=== PATIENT | male | born 1945 | race Caucasian/White ===

== ENCOUNTER 2021-08-27 07:12 | Emergency (ER) | payer OTHER ==
[~2021-08-27] VITALS: Ht 177.8 cm; Wt 84.0 kg
[2021-08-27] MEDS ORDERED: oxyCODONE/APAP 5/325 1 TAB TABLET PO ONE (07:30)
[2021-08-27] MEDS ORDERED: ONDANSETRON ODT 4 MG TAB.RAPDIS PO ONE (07:30)
--- NOTE | 2021-08-27 07:35 | PHYS DOC ---
Adult General Chief Complaint Chief Complaint: MECHANICAL FALL HPI HPI Patient is a 76-year-old male presenting to the emergency department for evaluation of a trip and fall that occurred shortly prior to arrival. Patient says that he was stepping over a curb when his left foot went over the curb but then he tried picking his right foot up and it did not go all the way up and he kicked into it and fell straight forward and landed on his face and passed out for 1 minute. He has multiple scrapes and abrasions and says that his tetanus is up-to-date. He says his primary complaint is a headache but he also has some neck and mid back pain as well as right shoulder pain and left knee pain. He says that he does not take any blood thinners. He is in no acute distress with normal vital signs other than hypertension noted. Review of Systems Review of Systems Constitutional: Denies fever or chills [] Eyes: Denies change in visual acuity, redness, or eye pain [] HENT: Denies nasal congestion or sore throat [] Respiratory: Denies cough or shortness of breath [] Cardiovascular: No additional information not addressed in HPI [] GI: Denies abdominal pain, nausea, vomiting, bloody stools or diarrhea [] : Denies dysuria or hematuria [] Musculoskeletal: + back pain, joint pain [] Integument: + abrasions Neurologic: + headache. No focal weakness or sensory changes [] All other systems were reviewed and found to be within normal limits, except as documented in this note. Current Medications Current Medications Current Medications Medications (Trade) Dose Ordered Sig/[facility] Start Time Stop Time Status Last Admin Dose Admin Ondansetron HCl (Zofran Odt) 4 mg 1X ONCE 08/27/21 07:30 08/27/21 07:31 Oxycodone/ Acetaminophen (Percocet 5/325) 2 tab 1X ONCE 08/27/21 07:30 08/27/21 07:31 Allergies Allergies Allergies Coded Allergies Type Severity Reaction Last Updated Verified No Known Drug Allergies 08/27/21 No Physical Exam Physical Exam Constitutional: Well developed, well nourished, no acute distress, non-toxic appearance. [] HENT: Normocephalic, atraumatic, bilateral external ears normal, oropharynx moist, no oral exudates, nose normal. [] Eyes: PERRLA, EOMI, conjunctiva normal, no discharge. [] Neck: Normal range of motion, no tenderness, supple, no stridor. [] Cardiovascular:Heart rate regular rhythm, no murmur [] Lungs & Thorax: Bilateral breath sounds clear to auscultation [] Abdomen: Bowel sounds normal, soft, no tenderness, no masses, no pulsatile masses. [] Skin: Multiple scrapes and abrasions on the left face left arm and right hand Back: Midline cervical and thoracic tenderness to palpation however no lumbar midline tenderness to palpation. Extremities: Pain to palpation in the right scapular and right shoulder region but intact active and passive range of motion. Left knee tender to palpation with no obvious swelling but there is a knee brace in place. Neurologic: Alert and oriented X 3, normal motor function, normal sensory function, no focal deficits noted. [] EKG EKG [] Radiology/Procedures Radiology/Procedures [] Heart Score C/O Chest Pain: No Risk Factors: Risk Factors: DM, Current or recent (<one month) smoker, HTN, HLP, family history of CAD, obesity. Risk Scores: Risk Factors: DM, Current or recent (<one month) smoker, HTN, HLP, family history of CAD, obesity. Course & Med Decision Making Course & Med Decision Making I will check imaging treat pain and reassess. Imaging all revealed no acute pathology however he may have possible posterior second and third right rib fractures and he is having some pain there on exam. Patient was told all incidental findings on imaging clean the old lacunar infarcts and old fractures. I told him he will need to follow-up as an outpatient for his pain and incidental findings. Patient's headache is going away and his repeat neurologic exam is normal and he is feeling well and asking to go home. Patient's vital signs have improved although he still does hypertension I told him he will need to follow-up with his primary care provider for this. I will prescribe him supportive medications and I told him to come back to emergency department with worsening pain neurologic changes or other general concerns. Patient aware and agreeable with plan and verbalized understanding the above instructions. Dragon Disclaimer Dragon Disclaimer This electronic medical record was generated, in whole or in part, using a voice recognition dictation system. Departure Departure: Impression: Primary Impression: CHI (closed head injury) Additional Impressions: Acute cervical sprain Thoracic back sprain Ribs, multiple fractures Left knee sprain Disposition: 01 HOME / SELF CARE / HOMELESS Condition: STABLE Referrals: PCP,UNKNOWN (PCP) Patient Instructions: Rib Fracture, [id number] Scripts Ibuprofen (Ibu) 600 Mg Tablet 1 TAB PO Q6HRS for 7 Days, #28 TAB 0 Refills Prov: RAFAEL CABRERA DO 08/27/21 Ondansetron (ONDANSETRON ODT) 4 Mg Tab.rapdis 1 TAB PO PRN Q6-8HRS, #16 TAB Prov: RAFAEL CABRERA DO 08/27/21 Oxycodone HCl/Acetaminophen (Percocet 5-325 mg Tablet) 1 Each Tablet 1 TAB PO PRN QID PRN for PAIN MDD 4 Tablet(s) for 5 Days, #20 TAB 0 Refills Prov: RAFAEL CABRERA DO 08/27/21 Problem Qualifiers Primary Impression: CHI (closed head injury) Encounter type: initial encounter Qualified Codes: S09.90XA - Unspecified injury of head, initial encounter Additional Impressions: Acute cervical sprain Encounter type: initial encounter Qualified Codes: S13.9XXA - Sprain of joints and ligaments of unspecified parts of neck, initial encounter Thoracic back sprain Encounter type: initial encounter Qualified Codes: S23.9XXA - Sprain of unspecified parts of thorax, initial encounter Ribs, multiple fractures Encounter type: initial encounter Fracture type: closed Laterality: right Qualified Codes: S22.41XA - Multiple fractures of ribs, right side, initial encounter for closed fracture Left knee sprain Encounter type: initial encounter Involved ligament of knee: unspecified ligament Qualified Codes: S83.92XA - Sprain of unspecified site of left knee, initial encounter RAFAEL CABRERA DO Aug 27, 2021 07:35
--- NOTE | 2021-08-27 08:09 | RAD ---
CT HEAD AND C-SPINE WO dated 08/27/2021 7:22 AM. Comparison: None. Clinical Indication: Reason: head injury s/p fall, pain / Spl. Instructions: / History: HEAD AND NEC K PAIN Technical factors: Contiguous 5 mm axial images of the head were obtained from the skullbase to the v ertex. No contrast was administered. In addition, 3 mm axial images of the cervical spine were acquir ed with thin cut coronal and sagittal reconstructions. One or more of the following individualized dose reduction techniques were utilized for this examinat ion: 1. Automated exposure control 2. Adjustment of the mA and/or kV according to patient size 3. Use of iterative reconstruction technique Findings head: Ventricles and sulci are mildly prominent for age. No midline shift or mass effect. There is mild pat doris low density in the deep/subcortical periventricular white matter. No hemorrhage or extra-axial co llection. There is a remote lacunar infarct of the right basal ganglia. There is also possible small remote lacunar infarcts of the left internal capsule and left cerebellum. Visualized paranasal sinuses are clear. There is opacification of the right mastoid air cells, likely chronic. No apparent calvarial abnormality. IMPRESSION HEAD: 1. No evidence of acute cranial hemorrhage or mass. 2. Mild chronic small vessel ischemic changes and atrophy. There are multiple small remote lacunar in farcts. Findings cervical spine: Images were acquired from the skull base to T2. Sagittal alignment is anatomic. Vertebral body height s are maintained. No prevertebral soft tissue swelling. Posterior elements are intact. No evidence of fracture. Moderate endplate hypertrophic changes throughout. Moderate multilevel uncovertebral spurring with di sc space narrowing, greatest at C5-C6 and C6-C7. Multilevel facet arthropathy. There is resultant mod erate to severe bilateral foraminal stenosis at C4-C5, C5-C6 and C6-C7. Small central disc protrusion s at C3-C4 and C4-C5 result in mild to moderate central stenosis. There is also mild to moderate cent ral canal narrowing at the C5-C6 and C6-C7 level due to disc osteophyte complexes. Images of the upper chest show mildly displaced fractures of the second and third posterior right rib s. There is a ovoid fluid collection in the soft tissues posterior to the rib fractures that measure up to 4.8 cm. There is also remote appearing displaced fracture of the midshaft right clavicle. Limit ed images of lung apices are clear. IMPRESSION CERVICAL SPINE: 1. No evidence of cervical spine fracture or malalignment. 2. There are mildly displaced fractures of the second and third posterior right ribs, acute versus yu bacute. Fluid collection in the adjacent soft tissues could represent bursal fluid collection or liqu efying hematoma. 3. Moderate multilevel spondylosis with multilevel mild to moderate central stenosis and varying degr ees of mild to severe foraminal narrowing. Electronically signed by: Gilberto Schwartz MD (08/27/2021 8:06 AM) [id number]
--- NOTE | 2021-08-27 08:18 | RAD ---
CT maxillofacial without contrast: Reason for examination: Fell with facial injury and back pain. Helical images were obtained through the maxillofacial structures. No contrast was administered. Christian nstruction was performed in sagittal and coronal planes. The paranasal sinuses show some minimal mucosal disease but the shelby of the sinuses appear to be int act. Mastoid air cells are clear. Orbital shelby are intact and the orbital structures appear to be in tact. Zygomatic arches are intact. Mandible shows no evidence of fracture and the temporomandibular j oints are maintained. Nasal bones are intact. IMPRESSION: No acute abnormality evident in the maxillofacial structures. CT thoracic spine without contrast: Helical images were obtained through the thoracic spine with no contrast administered. Reconstruction was performed in sagittal and coronal planes. The vertebral bodies are normally aligned anteriorly and posteriorly. No acute fracture or subluxatio n is evident. The posterior elements appear to be maintained. The intervertebral disc spaces are main tained. There are some hypertrophic spurs off the endplates anteriorly and laterally. No spinal steno sis is evident. IMPRESSION: No acute abnormality evident in the thoracic spine. Exposure: One or more of the following individualized dose reduction techniques were utilized for thi s examination: 1. Automated exposure control 2. Adjustment of the mA and/or kV according to patient size 3. Use of iterative reconstruction technique. Electronically signed by: Shila Henderson MD (08/27/2021 8:16 AM) MOHINI
--- NOTE | 2021-08-27 08:27 | RAD ---
Right shoulder 3 views: Reason for examination: Fell with shoulder and knee pain. The proximal humerus and scapula appear to be intact. There is however deformity at the right clavicl e which is probably the result of a healed fracture at the midshaft. There also appears be old healed rib fracture involving the third rib. Recommend clinical correlation. Joint spaces are maintained. IMPRESSION: Contour deformity involving the right clavicle which probably the result of a healed fracture. Recomm end clinical correlation. Left knee 3 views: No acute fracture or dislocation is seen. The bone density is normal. No abnormal periosteal reaction is seen. Joint space is fairly well-maintained with some mild degenerative change. No joint effusion is evident. IMPRESSION: Mild degenerative change at the left knee. No acute abnormality evident. Electronically signed by: Shila Henderson MD (08/27/2021 8:25 AM) MOHINI
[2021-08-27] MEDS ORDERED: ONDA4TAB12 PO (09:19)
[2021-08-27] MEDS ORDERED: OXYC-325 PO (09:19)
[2021-08-27] MEDS ORDERED: IBUP-571 PO (09:19)
[2021-08-27 09:39] VITALS: BP 163/85
== END 2021-08-27 09:45 | disposition home or self-care (01) ==
LOC: ER 07:12
DX: S22.41XA Multiple fractures of ribs, right side, initial encounter for closed fracture (principal); S83.92XA Sprain of unspecified site of left knee, initial encounter; S13.4XXA Sprain of ligaments of cervical spine, initial encounter; S23.9XXA Sprain of unspecified parts of thorax, initial encounter; S00.81XA Abrasion of other part of head, initial encounter; S40.812A Abrasion of left upper arm, initial encounter; S60.511A Abrasion of right hand, initial encounter; W01.0XXA Fall on same level from slipping, tripping and stumbling without subsequent striking against object, initial encounter; Y93.89 Activity, other specified; Y92.89 Other specified places as the place of occurrence of the external cause; Y99.8 Other external cause status
CPT/HCPCS: 70450; 70486; 72125; 72128; 73030; 73562; 99284; Q0162

== ENCOUNTER → 2021-09-22 | Outpatient (CLI) | payer OTHER ==
[2021-08-27 09:39] VITALS: BP 163/85
[~2021-09-22] MED LIST: IBUP-571 PO; ONDA4TAB12 PO; OXYC-325 PO
--- NOTE | 2021-09-22 16:11 | RAD ---
EXAM: XR SHOULDER_RIGHT 2+ VIEWS 09/22/2021 3:17 PM CLINICAL INDICATION: Recent fall, shoulder pain and history of clavicle fracture COMPARISON: Right shoulder radiograph 08/27/2021 TECHNIQUE: AP internal and external rotation and scapular Y views of the right shoulder FINDINGS: No acute fracture. Alignment is normal. The glenohumeral and acromioclavicular joints are maintained. There is an old mid clavicle fracture. IMPRESSION: No acute osseous abnormality. Electronically signed by: Kirstie Flowers MD (09/22/2021 4:09 PM) [id number]
== END ==
LOC: RAD 15:00
PROVIDERS: ATTEND Physician Assistant
DX: M25.511 Pain in right shoulder (principal); Z87.81 Personal history of (healed) traumatic fracture; W19.XXXA Unspecified fall, initial encounter
CPT/HCPCS: 73030